=== PATIENT | male | born 1955 | race African-American/Black ===

== ENCOUNTER 2017-12-02 09:34 | Emergency (ER) | payer OTHER ==
[~2017-12-02] VITALS: Ht 182.9 cm; Wt 118.0 kg
[2017-12-02] MEDS ORDERED: PIOG15TA6 PO (09:47)
[2017-12-02] MEDS ORDERED: GLIP5 PO (09:47)
[2017-12-02] MEDS ORDERED: LISI-660 PO (09:47)
[2017-12-02 09:53] LABS: GLUCOSE,POINT OF CARE 265 MG/DL (70-110)
[2017-12-02 12:00] VITALS: BP 115/55
== END 2017-12-02 12:02 | disposition home or self-care (01) ==
LOC: EMS 09:35
DX: S83.92XA Sprain of unspecified site of left knee, initial encounter (principal); E11.9 Type 2 diabetes mellitus without complications; I10 Essential (primary) hypertension; V49.40XA Driver injured in collision with unspecified motor vehicles in traffic accident, initial encounter; Y93.89 Activity, other specified; Y92.89 Other specified places as the place of occurrence of the external cause; Y99.8 Other external cause status
CPT/HCPCS: 82962; 99284

== ENCOUNTER 2018-01-02 09:26 | Emergency (ER) | payer OTHER ==
[~2018-01-02] VITALS: Ht 182.9 cm; Wt 113.6 kg
[~2018-01-02 09:26] MED LIST: GLIP5 PO; LISI-660 PO; PIOG15TA6 PO
[2018-01-02 09:43] LABS: GLUCOSE,POINT OF CARE 104 MG/DL (70-110)
[2018-01-02 10:38] LABS: BASOPHILS % (AUTO) 0.7 % (0.0-2.0); EOSINOPHILS % (AUTO) 5.1 % (1.0-6.0); HEMATOCRIT 34.3 % (41-53); HEMOGLOBIN 11.2 g/dL (13.5-17.5); LYMPHOCYTES # (AUTO) 1.1 K/uL (1.0-4.8); LYMPHOCYTES % (AUTO) 27.4 % (22.0-44.0); MEAN CORPUSCULAR HEMOGLOBIN 25.6 pg (26.0-34.0); MEAN CORPUSCULAR HGB CONC 32.6 G/dL (31.0-37.0); MEAN CORPUSCULAR VOLUME 79 fL (80-100); MONOCYTES # (AUTO) 0.3 K/uL (0.1-1.0); MONOCYTES % (AUTO) 7.7 % (2.0-9.0); NEUTROPHILS # (AUTO) 2.4 K/uL (1.8-7.7); NEUTROPHILS % (AUTO) 59.1 % (40.0-70.0); PLATELET COUNT (AUTO) 255 K/uL (150-450); RED BLOOD CELL COUNT(AUTO) 4.36 MIL/uL (4.50-5.90); RED CELL DISTRIBUTION WIDTH 15.1 % (11.5-14.5)
[2018-01-02 10:43] LABS: CALCIUM, TOTAL 9.4 mg/dL (8.8-10.5); CREATININE 1.44 mg/dL (0.60-1.30); POTASSIUM 4.3 mmol/L (3.5-5.1)
[2018-01-02 10:51] VITALS: BP 114/74
[2018-01-02 10:51] LABS: ALBUMIN 3.6 g/dL (3.4-5.0); BILIRUBIN,TOTAL 0.3 mg/dL (0.1-1.0); TOTAL PROTEIN, SERUM 7.8 g/dL (6.4-8.2)
== END 2018-01-02 12:52 | disposition home or self-care (01) ==
LOC: EDUNIT# 09:26 → EMS 09:28
DX: K62.5 Hemorrhage of anus and rectum (principal); E11.9 Type 2 diabetes mellitus without complications; I10 Essential (primary) hypertension
CPT/HCPCS: 82962; 99284

== ENCOUNTER 2022-04-11 15:08 | Emergency (ER) | payer OTHER ==
[~2022-04-11] VITALS: Ht 182.9 cm; Wt 106.8 kg
[~2022-04-11 15:08] MED LIST changes: -GLIP5 PO; +GLIP5TAB12 PO; -LISI-660 PO; +LISI-892 PO
[2022-04-11 19:11] VITALS: BP 142/81
== END 2022-04-11 19:13 | disposition home or self-care (01) ==
LOC: EMS 15:09
DX: S80.11XA Contusion of right lower leg, initial encounter (principal); M79.641 Pain in right hand; M79.605 Pain in left leg; I10 Essential (primary) hypertension; E11.9 Type 2 diabetes mellitus without complications; Z79.899 Other long term (current) drug therapy; W22.8XXA Striking against or struck by other objects, initial encounter; Y93.89 Activity, other specified; Y92.89 Other specified places as the place of occurrence of the external cause; Y99.0 Civilian activity done for income or pay
CPT/HCPCS: 82962; 99284